=== PATIENT | female | born 1965 | race Caucasian/White ===

== ENCOUNTER 2017-07-22 21:40 | Emergency (ER) | payer SELFPAY ==
[~2017-07-22] VITALS: Ht 157.5 cm; Wt 77.8 kg
[2017-07-22 21:55] VITALS: Ht 157.5 cm; Wt 77.8 kg
--- NOTE | 2017-07-22 23:43 | ERD ---
ER Documentation Chief Complaint Chief Complaint Per pt, "I had a nervous breakdown at home." c/o palpitations HPI 51-year-old presents here in emergency department for complaints of palpitations chest pain after having "nervous breakdown" after having an argument with family member at home. Patient had a chest pain, sharp pain, 4/ 10 scale, numbness and tingling all over the body. Patient was given to her about treatment for anxiety at home which help with her symptoms. Patient verbalized feeling much better. Patient denies any dyspnea on exertion or dizzy lying down. She denies any dizziness. ROS All systems reviewed and are negative except as per history of present illness. Medications Home Meds Reported Medications [none] Unknown Strength No Conflict Check 07/22/17 Allergies Allergies: Coded Allergies: No Known Allergy (Unverified , 07/22/17) PMhx/Soc Medical and Surgical Hx: pt denies Medical Hx History of Surgery: Yes (hysterectomy, rt ankle) Anesthesia Reaction: No Hx Neurological Disorder: No Hx Respiratory Disorders: No Hx Cardiac Disorders: No Hx Psychiatric Problems: No Hx Miscellaneous Medical Probl: No Hx Alcohol Use: No Hx Substance Use: No Hx Tobacco Use: No Smoking Status: Never smoker FmHx Family History: No coronary disease, No diabetes, No other Physical Exam Vitals Vital Signs Date Time Temp Pulse Resp B/P Pulse Ox O2 Delivery O2 Flow Rate FiO2 07/22/17 21:55 97.5 78 16 121/69 100 Physical Exam GENERAL: The patient is well developed and appropriate for usual state of health, in no apparent distress. CHEST: Clear to auscultation bilaterally. There are no rales, wheezes or rhonchi. HEART: Regular rate and rhythm. No murmurs, clicks, rubs or gallops. No S3 or S4. ABDOMEN: Soft, nontender and nondistended. Good bowel sounds. No rebound or guarding. No gross peritonitis. No gross organomegaly or masses. No Bray sign or McBurney point tenderness. BACK: No midline or flank tenderness. EXTREMITIES: Equal pulses bilaterally. There is no peripheral clubbing, cyanosis or edema. No focal swelling or erythema. Full range of motion. Grossly neurovascularly intact. NEURO: Alert and oriented. Cranial nerves 2-12 intact. Motor strength in all 4 extremities with 5/5 strength. Sensation grossly intact. Normal speech and gait. SKIN: There is no apparent rash or petechia. The skin is warm and dry. HEMATOLOGIC AND LYMPHATIC: There is no evidence of excessive bruising or lymphedema. No gross cervical, axillary, or inguinal lymphadenopathy. Results 24 hrs Current Medications Medications (Trade) Dose Ordered Sig/Ofelia Route PRN Reason Start Time Stop Time Status Last Admin Dose Admin Alprazolam (Xanax) 1 mg ONCE ONCE PO 07/23/17 00:00 07/23/17 00:01 DC 07/22/17 23:44 Xanax was given here in the emergency department. EKG was done, read by me and is normal sinus rhythm at a rate of 75, normal axis , there is no ST changes or changes in the EKG that indicates any cardiac emergencies at this time. Patient's EKG was also reviewed by Dr. Trivedi. Impression: no acute findings on EKG PROCEDURE: CHEST - 1 VIEW CLINICAL INDICATION: 51-year-old female with cough, chest pain and palpitations. TECHNIQUE: A single frontal AP portable view of the chest was performed. The images were reviewed on a PACS workstation. COMPARISON: None. FINDINGS: The cardiomediastinal silhouette has a normal appearance. There is no evidence for an infiltrate. There is no evidence for congestive heart failure. There is no evidence for pneumothorax. The osseous structures are intact. IMPRESSION: No evidence for active cardiopulmonary disease. .Morro Hansen MD, MD Date Time Electronically viewed and signed by .Morro Hansen MD, on 07/23/2017 00:40 .M/ CC: ILAN LOONEY NP Procedures/MDM Medical Decision Making: Patient's symptoms most likely consistent with anxiety. There is low suspicion for cardiopulmonary emergencies at this time. Patient has low risk factors. EKG is normal, there is no changes in the EKG that indicates cardiac emergencies. Chest X-ray does not show cardiopulmonary emergencies at this time. There is low suspicion for aortic aneurysm, myocardial infarction, pneumothorax, pleural effusion, pulmonary embolism, or any other cardiopulmonary emergencies at this time. Rx: xanax, ffup with PMD on 1-2 days. Dispostion: Home. Stable Disclaimer: Inadvertent spelling and grammatical errors are likely due to EHR/ dictation software use and do not reflect on the overall quality of patient care. Also, please note that the electronic time recorded on this note does not necessarily reflect the actual time of the patient encounter. Departure Diagnosis: Primary Impression: Anxiety attack Condition: Stable Patient Instructions: Anxiety Reaction ILAN LOONEY NP Jul 22, 2017 23:43
[2017-07-23] MEDS ORDERED: ALPRAZOLAM 1 MG TAB PO ONE
--- NOTE | 2017-07-23 00:41 | RADRPT ---
PROCEDURE: CHEST - 1 VIEW CLINICAL INDICATION: 51-year-old female with cough, chest pain and palpitations. TECHNIQUE: A single frontal AP portable view of the chest was performed. The images were reviewed on a PACS workstation. COMPARISON: None. FINDINGS: The cardiomediastinal silhouette has a normal appearance. There is no evidence for an infiltrate. There is no evidence for congestive heart failure. There is no evidence for pneumothorax. The osseou s structures are intact. IMPRESSION: No evidence for active cardiopulmonary disease. .Morro Hansen MD, MD Date Time Electronically viewed and signed by .Morro Hansen MD, MD on 07/23/2017 00:40 .M/
[2017-07-23] MEDS ORDERED: ALPR0.25 PO (00:57)
== END 2017-07-23 01:19 | disposition home or self-care (01) ==
LOC: FTE 21:40
DX: F41.9 Anxiety disorder, unspecified (principal)
CPT/HCPCS: 71010; 93005